=== PATIENT | male | born 1965 | race Caucasian/White ===

== ENCOUNTER 2020-09-08 07:23 | Emergency (ER) | payer OTHER ==
[~2020-09-08 07:23] MED LIST: TRIAMCINOLONE A15 G2 TOP
[2020-09-08 08:27] LABS: BILIRUBIN NEGATIVE (NEGATIVE); BLOOD NEGATIVE Ery/uL (NEGATIVE); CLARITY CLEAR (CLEAR); COLOR YELLOW (YELLOW); GLUCOSE (U) 3+ mg/dL (NORMAL); LEUKOCYTES NEGATIVE Leu/uL (NEGATIVE); NITRITE NEGATIVE (NEGATIVE); PROTEIN NEGATIVE (NEGATIVE); SPECIFIC GRAVITY 1.015 (1.001-1.030); UROBILINOGEN 0.2 mg/dL (0.2-1.0); pH 6.5 (5.0-9.0)
[2020-09-08 08:33] LABS: BASOPHIL 0.6 % (0-2); EOSINOPHIL 2.9 % (0-5); HCT 45.3 % (42.0-52.0); HGB 16.3 g/dl (13.2-18.0); MCV 94.4 fL (78.0-100.0); MONOCYTE 5.8 % (0-12); MPV 9.3 fL (6.0-9.5); NEUTROPHIL 72.4 % (41-80); NRBC 0; PLT 159 K/uL (150-400); RDW 12.9 % (11.5-14.0); WBC 8.8 K/uL (4.0-10.5)
[2020-09-08 08:58] LABS: ALBUMIN 3.6 g/dL (3.4-5.0); BILIRUBIN - TOTAL 0.7 mg/dL (0.2-1.0); BUN/CREAT RATIO (CALC) 22.6 RATIO; CREATININE 0.53 mg/dL (0.67-1.17); GLOBULIN (CALCULATION) 2.4 g/dL; POTASSIUM 4.1 mmol/L (3.5-5.1)
[2020-09-08 09:02] LABS: INR 0.99 (0.9-1.2); PROTHROMBIN TIME 12.4 SECONDS (11.4-13.6)
[2020-09-08 09:03] LABS: LACTIC ACID 1.2 mmol/L (0.4-1.9)
[2020-09-08] MEDS ORDERED: NORCO 5-325 TA1 EACH PO (11:45)
[2020-09-08] MEDS ORDERED: METFORMIN HCL500 M2 PO (11:45)
== END 2020-09-08 12:15 | disposition home or self-care (01) ==
LOC: FER 07:23
PROVIDERS: Emergency Medicine
DX: S22.42XA Multiple fractures of ribs, left side, initial encounter for closed fracture (principal); R10.9 Unspecified abdominal pain; R19.7 Diarrhea, unspecified; E11.9 Type 2 diabetes mellitus without complications; I10 Essential (primary) hypertension; F17.210 Nicotine dependence, cigarettes, uncomplicated; Z79.899 Other long term (current) drug therapy; X58.XXXA Exposure to other specified factors, initial encounter
CPT/HCPCS: 36415; 80053; 81003; 83036; 83605; 83690; 84145; 85025; 85610; 85730; J1170; J2405; J7030; Q9967